=== PATIENT | female | born 1995 | race Caucasian/White ===

== ENCOUNTER 2017-07-26 17:21 | Emergency (ER) | payer OTHER ==
[2017-07-26 17:40] VITALS: BP 122/73; PULSE 83; TEMP 98.4; BMI 21.9
[2017-07-26] MEDS ORDERED: ACETAMINOPHEN 325 MG TABLET (FP) PO ONE (17:40)
--- NOTE | 2017-07-26 17:40 | PDOC ---
Rapid Medical Evaluation Time Seen by Provider: 07/26/17 17:36 Medical Evaluation: 07/26/17 17:37 21 year old female with history of PCOS, a1 (elective termination of x 1 month ago), LMP 2 weeks ago, presenting with vaginal bleeding (2- 3 pads today). Complaining of left-sided pelvic pain. V/s unremarkable. Labs including CBC, bhcg, T&S Transvaginal u/s To Main ED for further evaluation
[2017-07-26 18:17] LABS: BASO % 0.7 % (0-2.0); EOS % 0.4 % (0-4.5); HEMATOCRIT 38.4 % (32.4-45.2); HEMOGLOBIN 12.7 GM/dL (10.7-15.3); LYMPH % 28.9 % (8-40); MCH 28.5 pg (25.7-33.7); MCHC 33.2 g/dl (32.0-36.0); MEAN PLT VOLUME 8.9 fl (7.5-11.1); MONO % 4.5 % (3.8-10.2); NEUT % 65.5 % (42.8-82.8); PLATELET COUNT 306 K/MM3 (134-434); RBC 4.47 M/mm3 (3.60-5.2); RDW 12.9 % (11.6-15.6); WHITE BLOOD COUNT 11.5 K/mm3 (4.0-10.0)
[2017-07-26 18:36] LABS: URINE APPEARANCE SLCLOUDY; URINE BILIRUBIN NEGATIVE (NEGATIVE); URINE BLOOD NEGATIVE (NEGATIVE); URINE COLOR YELLOW; URINE GLUCOSE (UA) NEGATIVE (NEGATIVE); URINE KETONE TRACE (NEGATIVE); URINE LEUK ESTERASE NEGATIVE (NEGATIVE); URINE NITRITE NEGATIVE (NEGATIVE); URINE PROTEIN NEGATIVE (NEGATIVE); URINE UROBILINOGEN 4.0 E.U/dl mg/dL (0.2-1.0)
--- NOTE | 2017-07-26 18:39 | PDOC ---
History of Present Illness - General Chief Complaint: Pain Stated Complaint: PAIN Time Seen by Provider: 07/26/17 17:36 - History of Present Illness Initial Comments: Ms Oliveros is a 21yo F with a PMHx of PCOS, frequent yeast infections, presents with intermittent L flank pain and post-coital spotting. The pain started a couple months ago, intermittent, sharp. Pain was worse w/ exertion, worse w/ intercourse. She had an induced in April after finding out the baby' s amniotic sac had blood around it, had subsequent bleeding for 1 month. She has been having post-coital spotting for 1-2 weeks. Denies dysuria, denies hematuria, denies fevers, chills. Past History - Past Medical History Allergies/Adverse Reactions: Allergies Allergy/AdvReac Type Severity Reaction Status Date / Time Penicillins Allergy Severe Difficulty Verified 07/26/17 17:37 Breathing Home Medications: Ambulatory Orders Non-Formulary 0 mg PO DAILY 07/26/17 - Suicide/Smoking/Psychosocial Hx Smoking History: Never smoked Review of Systems - Review of Systems Constitutional: No: Chills, Diaphoresis, Fever HEENTM: No: Eye Pain, Blurred Vision, Tearing Respiratory: No: Cough, Orthopnea, Shortness of Breath Cardiac (ROS): No: Chest Pain, Edema, Irregular Heart Rate ABD/GI: No: Blood Streaked Bowels, Diarrhea, Nausea : No: Burning, Dysuria, Discharge Musculoskeletal: Yes: Back Pain Integumentary: No: Bruising, Change in Color, Dryness Neurological: No: Headache, Numbness, Paresthesia Psychiatric: No: Frequent Crying, Stressors, Sleep Pattern Change Endocrine: No: Excessive Sweating, Flushing Hematologic/Lymphatic: No: Anemia, Easy Bleeding *Physical Exam - Vital Signs Last Vital Signs Temp Pulse Resp BP Pulse Ox 98.4 F 83 18 122/73 99 07/26/17 17:37 07/26/17 17:37 07/26/17 17:37 07/26/17 17:37 07/26/17 17:37 - Physical Exam Comments: GEN: AAOx3, NAD, Lying in no acute distress HEENT: PERRLA, EOMI CV: S1, S2, RRR LUNG: CTABL ABD: Soft, NT, ND, normoactive BS MSK: + L flank pain NEURO: CN 2-12 intact ED Treatment Course - LABORATORY CBC & Chemistry Diagram: 07/26/17 17:54 - ADDITIONAL ORDERS Additional order review: 07/26/17 17:54 RBC 4.47 MCV 86.0 MCHC 33.2 RDW 12.9 MPV 8.9 Neutrophils % 65.5 Lymphocytes % 28.9 Monocytes % 4.5 Eosinophils % 0.4 Basophils % 0.7 - Medications Given in the ED: ED Medications Discontinued Medications Generic Name Dose Route Start Last Admin Trade Name Brit PRN Reason Stop Dose Admin Acetaminophen 650 mg 07/26/17 17:40 07/26/17 17:42 Tylenol - PO 07/26/17 17:41 650 mg ONCE ONE Administration Medical Decision Making - Medical Decision Making 21yo F with a PMHx of L flank pain, pain with intercourse, and postcoital bleeding. I suspect this is either a tubal or ovarian pathology vs UTI vs yeast infection. I will get basic labs and TVUS 07/26/17 20:42 TVUS shows a hemorrhagic cyst, could be the cause of her pain. She has an appointment with OBGYN tomorrow, will followup for formal pap smear and cervical exam. Patient feels much improved. Dispo home *DC/Admit/Observation/Transfer Diagnosis at time of Disposition: Hemorrhagic cyst of ovary - Discharge Dispostion Disposition: HOME Condition at time of disposition: Improved Admit: No - Referrals - Patient Instructions Printed Discharge Instructions: DI for Ovarian Cyst Additional Instructions: You were seen in the Emergency room for back pain. This could be from the hemorrhagic cyst. Other lab results were normal. Urine was clear. I would like you to follow with your OBGYN tomorrow - Post Discharge Activity
== END 2017-07-26 20:53 | disposition home or self-care (01) ==
LOC: JER 17:21
DX: N83.201 Unspecified ovarian cyst, right side (principal); N83.202 Unspecified ovarian cyst, left side
CPT/HCPCS: 36415; 76830-TC; 81003; 84702; 85025; 86850; 86900; 86901; 87086; 99282-25

== ENCOUNTER 2017-07-27 18:23 | Emergency (ER) | payer OTHER ==
--- NOTE | 2017-07-27 18:36 | PDOC ---
Rapid Medical Evaluation Time Seen by Provider: 07/27/17 18:34 Medical Evaluation: Allergies Allergy/AdvReac Type Severity Reaction Status Date / Time Penicillins Allergy Severe Difficulty Verified 07/26/17 17:37 Breathing 07/27/17 18:34 I have performed a brief in-person evaluation of this patient. The patient presents with a chief complaint of: vaginal bleeding x 3-4 days ago after last menstrual cycle, told yesterday she is having hemorrhagic cyst, + orange discharge today, pelvic pain 6/10, "pressure on eyes today", no SOB, went to OBGYN today "and they didn't say anything, they just took some blood." Pertinent physical exam findings: well appearing I have ordered the following: nothing The patient will proceed to the ED for further evaluation.
[2017-07-27 18:38] VITALS: BP 126/76; PULSE 81; TEMP 98.8; BMI 21.9
--- NOTE | 2017-07-27 19:40 | PDOC ---
History of Present Illness - General Chief Complaint: Vaginal Bleeding Stated Complaint: PAIN Time Seen by Provider: 07/27/17 18:34 History Source: Patient - History of Present Illness Initial Comments: 07/27/17 19:36 21 year old female seen in the ED yesterday c/o foul smelling vaginal discharge brown in color. patient was diagnosed with a complex hemorrhagic cyst yesterday today reports that pain has improved, however still feels some discomfort to the Left pelvic area. denies vaginal bleeding, worsening pain, fever/ chills and urinary symptoms at this time. patient has a history of PCOS, BV and yeast infection 07/27/17 20:04 Past History - Past Medical History Allergies/Adverse Reactions: Allergies Allergy/AdvReac Type Severity Reaction Status Date / Time Penicillins Allergy Severe Difficulty Verified 07/27/17 18:38 Breathing Home Medications: Ambulatory Orders Non-Formulary 0 mg PO DAILY 07/26/17 metroNIDAZOLE 0.75% VAG. GEL [Metrogel 0.75% *Vaginal Gel* -] 1 applic VG BID # 10 tube 07/27/17 COPD: No Other medical history: PCOS - Reproductive History (#): 1 Para: 0 Therapeutic (s) & number: (1) Spontaneous : 0 - Suicide/Smoking/Psychosocial Hx Smoking History: Never smoked Have you smoked in the past 12 months: No Information on smoking cessation initiated: No Hx Alcohol Use: No Drug/Substance Use Hx: No Substance Use Type: None Review of Systems - Review of Systems Able to Perform ROS?: Yes Is the patient limited Vietnamese proficient: No : Yes: Other (vaginal discharge) *Physical Exam - Vital Signs Last Vital Signs Temp Pulse Resp BP Pulse Ox 98.8 F 81 18 126/76 99 07/27/17 18:34 07/27/17 18:34 07/27/17 18:34 07/27/17 18:34 07/27/17 18:34 - Physical Exam General Appearance: Yes: Appropriately Dressed Female Pelvic Exam: positive: normal external exam, cervical os closed, normal adnexa, other (fishy brown discharge). negative: CMT Gastrointestinal/Abdominal: positive: Normal Bowel Sounds, Soft. negative: Tender Extremity: positive: Normal Capillary Refill, Normal Inspection, Normal Range of Motion Integumentary: positive: Normal Color, Dry, Warm Neurologic: positive: Fully Oriented, Alert, Normal Mood/Affect Progress Note - Progress Note Progress Note: A: vaginal discharge *DC/Admit/Observation/Transfer Diagnosis at time of Disposition: Bacterial vaginosis - Discharge Dispostion Disposition: HOME - Prescriptions Prescriptions: metroNIDAZOLE 0.75% VAG. GEL [Metrogel 0.75% *Vaginal Gel* -] 1 applic VG BID # 10 tube - Referrals - Patient Instructions Printed Discharge Instructions: Bacterial Vaginosis Additional Instructions: follow up with your admissions director as soon as possible. - Post Discharge Activity
--- NOTE | 2017-07-27 20:00 | PDOC ---
*Physical Exam - Vital Signs Last Vital Signs Temp Pulse Resp BP Pulse Ox 98.8 F 81 18 126/76 99 07/27/17 18:34 07/27/17 18:34 07/27/17 18:34 07/27/17 18:34 07/27/17 18:34 - Physical Exam Comments: 07/27/17 19:59 The patient was examined by [ARIEL Courtney] under my direct supervision. I personally evaluated the patient. I concur with the above findings and the plan of care. *DC/Admit/Observation/Transfer Diagnosis at time of Disposition: Bacterial vaginosis - Discharge Dispostion Disposition: HOME - Prescriptions Prescriptions: metroNIDAZOLE 0.75% VAG. GEL [Metrogel 0.75% *Vaginal Gel* -] 1 applic VG BID # 10 tube - Referrals - Patient Instructions Printed Discharge Instructions: Bacterial Vaginosis Additional Instructions: follow up with your youth services librarian as soon as possible. - Post Discharge Activity
== END 2017-07-27 20:17 | disposition home or self-care (01) ==
LOC: JER 18:23
DX: N76.0 Acute vaginitis (principal); B96.89 Other specified bacterial agents as the cause of diseases classified elsewhere; Z87.42 Personal history of other diseases of the female genital tract
CPT/HCPCS: 99282-25